=== PATIENT | female | born 1995 | race Two or more races ===

== ENCOUNTER → 2021-06-27 | Outpatient (CLI) | payer MEDICAID | END | disposition home or self-care (01) | LOC: LAB 11:16 | PROVIDERS: ATTEND Obstetrics & Gynecology | DX: Z34.00 Encounter for supervision of normal first pregnancy, unspecified trimester (principal); Z72.51 High risk heterosexual behavior; Z3A.00 Weeks of gestation of pregnancy not specified ==

== ENCOUNTER 2021-09-26 01:07 | Inpatient (IN) | payer MEDICAID ==
[~2021-09-26] VITALS: Ht 152.4 cm; Wt 83.9 kg
[2021-09-26] MEDS ORDERED: LIDOCAINE 2%HCL (LOCAL ANESTH.) INJ 20ML MDV IJ PRN (02:00)
[2021-09-26] MEDS ORDERED: BUTORPHANOL TARTRATE 2 MG/1 ML VIAL IV PRN ×2 (02:00)
[2021-09-26] MEDS ORDERED: PROMETHAZINE HCL 25 MG/ML 1ML IM PRN (02:00)
[2021-09-26] MEDS ORDERED: PROMETHAZINE HCL 25 MG/ML 1ML IV PRN (02:00)
[2021-09-26] MEDS ORDERED: TERBUTALINE SULFATE 1 MG/ML 1ML VIAL SC PRN (02:30)
[2021-09-26] MEDS ORDERED: METHYLERGONOVINE MALEATE 0.2 MG/ML AMP IM ONE (02:30)
[2021-09-26] MEDS ORDERED: LACT. RINGERS/OXYTOCIN 20UNITS 500 ML IV ONE ×3 (02:30→20:15)
[2021-09-26] MEDS ORDERED: LACT. RINGERS/OXYTOCIN 20UNITS 1,000 ML IV SCH ×2 (02:30→17:15)
[2021-09-26 03:21] LABS: Basophils # (auto) 0 10 ^3/uL (0-0.2); Basophils % (auto) 0.3 % (0.0-2.0); Eosinophils # (auto) 0 10 ^3/uL (0-0.8); Eosinophils % (auto) 0.4 % (0.0-7.0); Hemoglobin 12.1 g/dL (12.2-16.2); Lymphocytes % (auto) 24.1 % (10.0-50.0); Mean Corpuscular Hemoglobin 29.2 pg (28.0-32.0); Mean Corpuscular Hgb Conc. 33.6 g/dL (32.0-36.0); Monocytes # (auto) 0.5 10 ^3/uL (0-1.3); Monocytes % (auto) 6.5 % (0.0-12.0); Neutrophils # (auto) 5.8 10 ^3/uL (1.6-8.6); Neutrophils % (auto) 68.7 % (37.0-80.0); Red Blood Cells 4.13 10^6/uL (4.0-5.20); Red Cell Distribution Width 14.7 % (11.8-14.3); White Blood Cell 8.5 10^3/uL (4.4-10.8)
[2021-09-26 03:35] LABS: INR 0.95 (0.9-1.15); Partial Thromboplastin Time 28.4 sec (23.6-33.0)
[2021-09-26 03:37] LABS: Alcohol, Urine < 3.0 mg/dL (0-10); Amphetamine Screen, Urine NEGATIVE (NEGATIVE); Barbiturate Scree,Urine NEGATIVE (NEGATIVE); Benzodiazephine Screen, Urine NEGATIVE (NEGATIVE); Cannabinoid Screen, Urine NEGATIVE (NEGATIVE); Cocaine Screen, Urine NEGATIVE (NEGATIVE); Opiate Scree,Urine NEGATIVE (NEGATIVE); Phencyclidine Screen, Urine NEGATIVE (NEGATIVE)
[2021-09-26 03:41] LABS: Albumin 2.4 g/dL (3.4-5.0); Calcium 8.8 mg/dL (8.5-10.1); Potassium 3.7 mmol/L (3.5-5.1)
[2021-09-26 03:43] LABS: BUN/Creatinine Ratio 14.7
[2021-09-26 03:45] LABS: Urine Bacteria NONE SEEN /hpf (None Seen); Urine Blood 2+ /uL (Negative); Urine Specific Gravity 1.009 (1.001-1.035); Urine WBC 10 /hpf (0 - 5)
[2021-09-26 03:46] LABS: Bilirubin, Total 0.2 mg/dL (0.2-1.0); Total Protein 6.3 g/dL (6.4-8.2)
[2021-09-26] MEDS: LACTATED RINGER'S 1,000 ML IV SCH ×2 (05:53→12:23)
[2021-09-26] MEDS ORDERED: miSOPROStol 50 MCG per PRE-CUT 1/2 TAB PO PRN (07:30)
[2021-09-26] MEDS: miSOPROStol 50 MCG per PRE-CUT 1/2 TAB PO PRN ×2 (07:40→13:00)
[2021-09-26] MEDS: ceFAZolin 1GM/50ML 50 ML IV SCH ×3 (08:26→23:53)
[2021-09-26] MEDS ORDERED: NALOXONE HCL 0.4 MG/ML VIAL IV ONE ×2 (11:00)
[2021-09-26] MEDS ORDERED: LACTATED RINGER'S 1,000 ML IV ONE (11:00)
[2021-09-26] MEDS ORDERED: ePHEDrine SULFATE 50 MG/ML AMP IV ONE ×2 (11:00)
[2021-09-26] MEDS ORDERED: ROPIVACAINE HCL 200 ML EPI SCH (11:00)
[2021-09-26] MEDS ORDERED: fentaNYL CITRATE 100 MCG/2 ML VL IV ONE (11:00)
[2021-09-26] MEDS ORDERED: LIDOCAINE HCL 2 %PF INJ 10ML AMP IJ ONE (11:00)
[2021-09-26] MEDS ORDERED: ceFAZolin 1GM/50ML 50 ML IV SCH (14:00)
[2021-09-26] MEDS: WITCH HAZEL-GLYCERIN PAD TOP PRN ×2 (16:35→21:05)
[2021-09-26] MEDS: DERMOPLAST 60ML BOTTLE TOP PRN ×2 (16:35→21:05)
[2021-09-26] MEDS: PHISODERM TOP SOLN 240ML BTL TOP PRN ×2 (16:35→21:05)
[2021-09-26] MEDS ORDERED: ONDANSETRON ODT 4 MG TAB PO PRN (19:45)
[2021-09-26] MEDS ORDERED: LIDOCAINE 2%HCL (LOCAL ANESTH.) INJ 20ML MDV ONE (20:02)
[2021-09-26] MEDS: DOCUSATE SOD 100 MG CAP PO SCH (22:35)
[2021-09-26] MEDS: ACETAMINOPHEN 325 MG TAB PO PRN (22:35)
[2021-09-26 23:00] VITALS: BP 110/55
[2021-09-27 03:00] VITALS: BP 118/57
[2021-09-27 06:06] LABS: RPR Non Reactive (Non Reactive)
[2021-09-27] MEDS: IBUPROFEN 600 MG TAB PO PRN (06:55)
[2021-09-27 07:04] VITALS: BP 112/58
[2021-09-27] MEDS: ceFAZolin 1GM/50ML 50 ML IV SCH ×2 (08:04→16:29)
[2021-09-27] MEDS ORDERED: ROPIVACAINE HCL 200 ML EPI SCH (11:00)
[2021-09-27 11:19] VITALS: BP 128/58
[2021-09-27] MEDS: ACETAMINOPHEN 325 MG TAB PO PRN ×2 (11:24→16:29)
[2021-09-27] MEDS ORDERED: DOCU-94 PO (12:21)
[2021-09-27] MEDS ORDERED: CEPH-322 PO (12:21)
[2021-09-27 15:10] VITALS: BP 114/67
[2021-09-27 19:00] VITALS: BP 101/56
[2021-09-27] MEDS: DOCUSATE SOD 100 MG CAP PO SCH (22:10)
[2021-09-27 23:00] VITALS: BP 120/66
[2021-09-28] MEDS: ceFAZolin 1GM/50ML 50 ML IV SCH ×2 (00:22→07:52)
[2021-09-28 03:00] VITALS: BP 110/65
[2021-09-28 06:50] VITALS: BP 114/63
[2021-09-28] MEDS: IBUPROFEN 600 MG TAB PO PRN (08:02)
[2021-09-28 11:00] VITALS: BP 99/52
[2021-09-28] MEDS ORDERED: CEPH500T PO (13:23)
[2021-09-28] MEDS ORDERED: IBUP600T27 PO (13:33)
[2021-09-28] MEDS: WITCH HAZEL-GLYCERIN PAD TOP PRN (14:09)
[2021-09-28] MEDS: DERMOPLAST 60ML BOTTLE TOP PRN (14:09)
[2021-09-28 15:14] VITALS: BP 112/78
== END 2021-09-28 15:22 | disposition home or self-care (01) | DRG 542 ==
LOC: LDRP 01:07 → OBSVTOIN 01:45 → LDRP 01:46
PROVIDERS: ADMIT Obstetrics & Gynecology; ATTEND Obstetrics & Gynecology
PROC: 0DQR0ZZ Repair Anal Sphincter, Open Approach (ICD-10-PCS; principal; 2021-09-26)
PROC: 10E0XZZ Delivery of Products of Conception, External Approach (ICD-10-PCS; 2021-09-26)
PROC: 0W8NXZZ Division of Female Perineum, External Approach (ICD-10-PCS; 2021-09-26)
PROC: 3E0R3BZ Introduction of Anesthetic Agent into Spinal Canal, Percutaneous Approach (ICD-10-PCS; 2021-09-26)
PROC: 00HU33Z Insertion of Infusion Device into Spinal Canal, Percutaneous Approach (ICD-10-PCS; 2021-09-26)
DX: O42.92 Full-term premature rupture of membranes, unspecified as to length of time between rupture and onset of labor (principal); Z37.0 Single live birth; O70.20 Third degree perineal laceration during delivery, unspecified; Z20.822 Contact with and (suspected) exposure to COVID-19; Z3A.38 38 weeks gestation of pregnancy
CPT/HCPCS: 36415; 59025; 59409; 62282; 80053; 80307; 81001; 81002; 84112; 85025; 85610; 85730; 86592; 86850; 86900; 86901; 87426; 94760; 96360; 96361; 96365; 96366; G0378; J0690; J2590

== ENCOUNTER 2023-05-14 15:09 | Emergency (ER) | payer MEDICAID ==
[~2023-05-14] VITALS: Ht 154.9 cm; Wt 78.8 kg
[~2023-05-14 15:09] MED LIST: CEPH500T PO; DOCU-94 PO; IBUP-1454 PO
[2023-05-14 15:35] VITALS: BP 135/88
[2023-05-14] MEDS ORDERED: LORATADINE 10 MG TAB PO ONE (17:30)
[2023-05-14] MEDS ORDERED: DexAMETHasone SOD PHOS 10MG/1ML VIAL INJ IM ONE (17:30)
[2023-05-14] MEDS ORDERED: LORA-622 PO (18:06)
[2023-05-14 19:33] LABS: Urine Bacteria NONE SEEN /hpf (None Seen); Urine Blood Negative /uL (Negative); Urine Specific Gravity 1.005 (1.001-1.035); Urine WBC <1 /hpf (0 - 5)
== END 2023-05-14 19:47 | disposition home or self-care (01) ==
LOC: ER 15:09
DX: R21 Rash and other nonspecific skin eruption (principal); T36.95XA Adverse effect of unspecified systemic antibiotic, initial encounter; Z79.1 Long term (current) use of non-steroidal anti-inflammatories (NSAID); Z79.899 Other long term (current) drug therapy; Y92.89 Other specified places as the place of occurrence of the external cause
CPT/HCPCS: 81001; 96372; 99283; J1100

== ENCOUNTER 2024-06-12 09:51 | Emergency (ER) | payer MEDICAID ==
[~2024-06-12] VITALS: Ht 157.5 cm; Wt 72.4 kg
[~2024-06-12 09:51] MED LIST changes: +CIPR-173 PO; +LORA-622 PO
[2024-06-12 11:25] LABS: Hematocrit 42.1 % (36.0-46.0); Hemoglobin 14.2 g/dL (12.2-16.2); Mean Corpuscular Hemoglobin 29.9 pg (28.0-32.0); Mean Corpuscular Hgb Conc. 33.8 g/dL (32.0-36.0); Mean Corpuscular Volume 88.6 fL (80.0-100.0); Red Blood Cells 4.75 10^6/uL (4.0-5.20); Red Cell Distribution Width 13.6 % (11.8-14.3); White Blood Cell 2.1 10^3/uL (4.4-10.8)
[2024-06-12 11:27] LABS: Basophils % (manual) 0 (0.0-2.0); Blast Cells 0; Metamyelocytes % 0; Myelocytes % 0; Promyelocytes % 0
[2024-06-12 11:40] LABS: Alanine Aminotransferase 23 U/L (7-40); Albumin 4.6 g/dL (3.2-4.8); Alkaline Phosphatase 81 U/L (46-116); Anion Gap 8 (5-15); Aspartate Aminotransferase 21 U/L (13-40); BUN/Creatinine Ratio 9.2 (10.0-20.0); Blood Urea Nitrogen 7 mg/dL (9-23); Calcium 9.3 mg/dL (8.7-10.4); Carbon Dioxide 22 mmol/L (20-30); Chloride 106 mmol/L (98-107); Glucose 106 mg/dL (74-106); Potassium 3.8 mmol/L (3.5-5.1); Sodium 136 mmol/L (136-145)
[2024-06-12 11:41] LABS: Bilirubin, Total 0.3 mg/dL (0.2-1.0); Total Protein 7.7 g/dL (5.7-8.2)
[2024-06-12 12:10] LABS: Band Neutrophils % (manual) 2; Eosinophils % (manual) 1 (0-7); Lymphocytes % (manual) 63 (10.0-50.0); Monocytes % (manual) 10 (0-12); Reactive Lymphocytes 4
[2024-06-12 12:11] LABS: Anisocytosis Slight; Platelet Estimate Adequate
[2024-06-12 13:53] VITALS: PULSE 84; RESP 16; O2SAT 97
[2024-06-12 15:37] VITALS: BP 148/91; PULSE 94; RESP 16; TEMP 98; O2SAT 99
[2024-06-12] MEDS: FAMOTIDINE 20 MG TAB PO ONE (16:16)
[2024-06-12] MEDS: diphenhdrAMINE HCL 25 MG CAP PO ONE (16:16)
[2024-06-12 16:23] LABS: Urine Bacteria None Seen /hpf (None Seen)
[2024-06-12 16:43] LABS: Urine Blood 3+ /uL (Negative); Urine Clarity Clear (Clear); Urine Color Colorless (Yellow); Urine Protein, UAD TRACE (Negative); Urine Specific Gravity 1.008 (1.001-1.035); Urine Urobilinogen Normal (Negative); Urine WBC 3 /hpf (0 - 5); Urine pH 5.5 (5.0-9.0)
== END 2024-06-12 16:20 | disposition home or self-care (01) ==
LOC: ER 09:51
DX: R55 Syncope and collapse (principal); Z88.2 Allergy status to sulfonamides; Z79.1 Long term (current) use of non-steroidal anti-inflammatories (NSAID); Z79.899 Other long term (current) drug therapy
CPT/HCPCS: 36415; 70450; 71046; 80053; 81001; 84484; 85007; 85027; 93005